=== PATIENT | male | born 1985 | race Caucasian/White ===

== ENCOUNTER 2019-04-04 21:45 | Emergency (ER) | payer BC, OTHER ==
[2019-04-04 22:10] LABS: Absolute Lymphocytes (CBC) 3.4 K/uL (0.7-4.9); MPV 9.1 fL (7.6-11.3); RBC Red Blood Cell Count 4.99 M/uL (4.33-5.43)
[2019-04-04] MEDS ORDERED: METOPROLOL TARTRATE 5 MG/5 ML INJ IV ONE (22:11)
--- NOTE | 2019-04-04 22:19 | RAD REPORT ---
EXAM DESCRIPTION: Shmuel Single View04/04/2019 10:11 pm CLINICAL HISTORY: Chest pain COMPARISON: none FINDINGS: The lungs appear clear of acute infiltrate. The heart is normal size IMPRESSION: No acute abnormalities displayed
[2019-04-04 22:20] LABS: Protime INR 0.96
[2019-04-04 22:37] LABS: ALT/SGPT 47 U/L (12-78); AST/SGOT 30 U/L (15-37); Albumin 3.8 g/dL (3.4-5.0); Alkaline Phosphatase 125 U/L (45-117); BUN Blood Urea Nitrogen 4 mg/dL (7-18); Bicarbonate 24 mmol/L (21-32); Bilirubin Direct < 0.1 mg/dL (0-0.2); Bilirubin Total 0.3 mg/dL (0.2-1.0); Glucose Level 115 mg/dL (74-106); Magnesium 2.2 mg/dL (1.8-2.4); NT PRO-BNP 8 pg/mL (<125); Potassium 4.1 mmol/L (3.5-5.1); Protein, Total 7.6 g/dL (6.4-8.2); Sodium Level 143 mmol/L (136-145); Troponin (Emerg Dept Use Only) < 0.02 ng/mL (0.0-0.045)
[2019-04-04 23:37] LABS: Barbiturates NEGATIVE (NEGATIVE); Benzodiazepines NEGATIVE (NEGATIVE); Cocaine NEGATIVE (NEGATIVE); METHAMPHETAM NEGATIVE (NEGATIVE); Methadone NEGATIVE (NEGATIVE); Opiates NEGATIVE (NEGATIVE); Phencyclidine NEGATIVE (NEGATIVE); THC Cannibis NEGATIVE (NEGATIVE)
--- NOTE | 2019-04-04 23:56 | ER ---
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 pt c/o ak1 nausea. pt stated he has a history of this and once he coughs, "it fixes it". Transition of care: patient was not received from another setting of care. Onset of symptoms is unknown. Risk Assessment: Do you want to hurt yourself or someone else? Patient reports no desire to harm self or others. Initial Sepsis Screen: Does the patient meet any 2 criteria? No. Patient's initial sepsis screen is negative. Does the patient have a suspected source of infection? No. Patient's initial sepsis screen is negative. Care prior to arrival: None. 21:56 Method Of Arrival: Wheelchair ak1 21:56 Acuity: EMELYN 2 ak1 Triage Assessment: 21:58 General: Appears in no apparent distress. uncomfortable, Behavior is calm, cooperative. ak1 Pain: Denies pain. Historical: - Allergies: 21:58 Cipro PO; ak1 - Home Meds: 21:58 omeprazole Oral [Active]; ak1 - PMHx: 21:58 heartburn; ak1 - PSHx: 21:58 Cholecystectomy; ak1 - Immunization history:: Adult Immunizations unknown. - Social history:: Smoking status: Patient uses tobacco products, smokes one pack cigarettes per day. - Ebola Screening: : No symptoms or risks identified at this time. Screenin:58 Abuse screen: Denies threats or abuse. Denies injuries from another. Nutritional ak1 screening: No deficits noted. Tuberculosis screening: No symptoms or risk factors identified. Fall Risk None identified. Assessment: 22:00 General: Appears uncomfortable, Behavior is appropriate for age. Pain: Complains of ea pain in chest Quality of pain is described as "feels like my heart is beating out of my chest". Neuro: Level of Consciousness is awake, alert, obeys commands, Oriented to person, place, time, situation. Cardiovascular: Patient's skin is warm and dry. Respiratory: Airway is patent Respiratory effort is even, unlabored, Respiratory pattern is regular, symmetrical. GI: Abdomen is non-distended. Derm: Skin is dry, Skin is flushed, Skin temperature is warm. Musculoskeletal: Circulation, motion, and sensation intact. 23:37 Reassessment: Patient appears in no apparent distress at this time. Patient and/or rv family updated on plan of care and expected duration. Pain level reassessed. Patient is alert, oriented x 3, equal unlabored respirations, skin warm/dry/pink. Patient denies pain at this time. Patient states feeling better. Patient states symptoms have improved. Vital Signs: 21:55 BP 175 / 85; Pulse 127; Resp 18; Temp 98.2; Pulse Ox 94% on R/A; Weight 90.72 kg (R); ak1 Height 5 ft. 11 in. (180.34 cm) (R); Pain 0/10; 22:30 BP 116 / 76; Pulse 93; Resp 18; Temp 98.7(O); Pulse Ox 97% on R/A; ea 23:00 BP 127 / 88; Pulse 94; Resp 16; Pulse Ox 97% on R/A; rv 23:30 BP 116 / 82; Pulse 91; Resp 15; Pulse Ox 96% on R/A; rv 21:55 Body Mass Index 27.89 (90.72 kg, 180.34 cm) ak1 ED Course: 21:46 Patient arrived in ED. es 21:47 Bran Cabrera DO is Private Physician. es 21:51 Uriah Inman PA is PHCP. jr8 21:51 Carlyle Ross MD is Attending Physician. jr8 21:54 Quan Wang RN is Primary Nurse. rv 21:55 Arm band placed on Patient placed in an exam room, on a stretcher, on equipment monitor phototypesetting, ak1 on pulse oximetry, Patient notified of wait time. 21:57 Triage completed. ak1 21:59 Patient has correct armband on for positive identification. Placed in gown. Bed in low ea position. Call light in reach. Side rails up X2. 21:59 EKG done, by ED staff. ea 22:04 Inserted saline lock: 20 gauge in right antecubital area, using aseptic technique. rv Blood collected. 22:11 XRAY Chest (1 view) In Process Unspecified. EDMS 23:55 Lang Miranda MD is Referral Physician. jr8 04/05 00:00 No provider procedures requiring assistance completed. IV discontinued, intact, rv bleeding controlled, No redness/swelling at site. Pressure dressing applied. Administered Medications: 04/04 22:15 Drug: Lopressor 5 mg Route: IVP; Site: right antecubital; rv 23:38 Follow up: Response: Cardiac rhythm changed rv 23:59 Drug: Metoprolol 25 mg Route: PO; rv 04/05 00:00 Follow up: Response: Medication administered at discharge. rv Outcome: 04/04 23:55 Discharge ordered by . jr8 04/05 00:00 Discharged to home ambulatory, with family. rv Condition: improved Discharge instructions given to patient, Instructed on discharge instructions, follow up and referral plans. medication usage, Demonstrated understanding of instructions, follow-up care, medications, Prescriptions given X 1. 00:09 Patient left the ED. rv Signatures: Dispatcher [employer] EDMS Columba Do Josh, PA PA jr8 Nell Duong RN RN ak1 Nai Clements, RN RN Quan Ceja RN RN rv
--- NOTE | 2019-04-04 23:57 | EDPHYS ---
Physician Documentation [facility] Name: Omar Carpenter Age: 33 yrs Sex: Male : 1985 Arrival Date: 04/04/2019 Time: 21:46 Bed 28 Private MD: Bran Cabrera H ED Physician Carlyle Ross HPI: 04/04 23:49 This 33 yrs old Male presents to ER via Wheelchair with complaints of jr8 Palpitations. 23:49 The patient presents with a history of heart racing, heart skipping beats. Context: The jr8 symptoms occur at rest. Onset: The symptoms/episode began/occurred gradually, 2 year(s) ago, and became worse today, and became persistent today. Duration: The patient or guardian reports a single episode, that is still ongoing. Modifying factors: The symptoms are aggravated by nothing. The symptoms are alleviated by nothing. Associated signs and symptoms: The patient has no apparent associated signs or symptoms. Severity of symptoms: At their worst the symptoms were moderate in the emergency department the symptoms are unchanged. The patient has experienced similar episodes in the past, several times. The patient has not recently seen a physician. Patient stated that he has had skipping and racing heart beat for the past 2 years. Came on randomly one day and has continued since then. Stated that normally will last for a day and he can sleep it off and by the next day be fine. This particular episode started 3 days ago and has continued through today. Historical: - Allergies: 21:58 Cipro PO; ak1 - Home Meds: 21:58 omeprazole Oral [Active]; ak1 - PMHx: 21:58 heartburn; ak1 - PSHx: 21:58 Cholecystectomy; ak1 - Immunization history:: Adult Immunizations unknown. - Social history:: Smoking status: Patient uses tobacco products, smokes one pack cigarettes per day. - Ebola Screening: : No symptoms or risks identified at this time. ROS: 23:49 Eyes: Negative for injury, pain, redness, and discharge, ENT: Negative for injury, jr8 pain, and discharge, Neck: Negative for injury, pain, and swelling, Respiratory: Negative for shortness of breath, cough, wheezing, and pleuritic chest pain, Abdomen/GI: Negative for abdominal pain, nausea, vomiting, diarrhea, and constipation, Back: Negative for injury and pain, MS/Extremity: Negative for injury and deformity, Skin: Negative for injury, rash, and discoloration, Neuro: Negative for headache, weakness, numbness, tingling, and seizure. 23:49 Cardiovascular: Positive for palpitations, Negative for chest pain, edema, orthopnea, paroxysmal nocturnal dyspnea. Exam: 23:49 Eyes: Pupils equal round and reactive to light, extra-ocular motions intact. Lids and jr8 lashes normal. Conjunctiva and sclera are non-icteric and not injected. Cornea within normal limits. Periorbital areas with no swelling, redness, or edema. ENT: Nares patent. No nasal discharge, no septal abnormalities noted. Tympanic membranes are normal and external auditory canals are clear. Oropharynx with no redness, swelling, or masses, exudates, or evidence of obstruction, uvula midline. Mucous membranes moist. Neck: Trachea midline, no thyromegaly or masses palpated, and no cervical lymphadenopathy. Supple, full range of motion without nuchal rigidity, or vertebral point tenderness. No Meningismus. Respiratory: Lungs have equal breath sounds bilaterally, clear to auscultation and percussion. No rales, rhonchi or wheezes noted. No increased work of breathing, no retractions or nasal flaring. Abdomen/GI: Soft, non-tender, with normal bowel sounds. No distension or tympany. No guarding or rebound. No evidence of tenderness throughout. Back: No spinal tenderness. No costovertebral tenderness. Full range of motion. Skin: Warm, dry with normal turgor. Normal color with no rashes, no lesions, and no evidence of cellulitis. MS/ Extremity: Pulses equal, no cyanosis. Neurovascular intact. Full, normal range of motion. Neuro: Awake and alert, GCS 15, oriented to person, place, time, and situation. Cranial nerves II-XII grossly intact. Motor strength 5/5 in all extremities. Sensory grossly intact. Cerebellar exam normal. Normal gait. 23:49 Cardiovascular: Rate: tachycardic, Rhythm: regular, Pulses: Pulses are 2+ in right radial artery and left radial artery. Heart sounds: normal, normal S1and S2, no S3 or S4, no murmur, no rub, no gallop, Edema: is not appreciated, JVD: is not appreciated. Vital Signs: 21:55 BP 175 / 85; Pulse 127; Resp 18; Temp 98.2; Pulse Ox 94% on R/A; Weight 90.72 kg (R); ak1 Height 5 ft. 11 in. (180.34 cm) (R); Pain 0/10; 22:30 BP 116 / 76; Pulse 93; Resp 18; Temp 98.7(O); Pulse Ox 97% on R/A; ea 23:00 BP 127 / 88; Pulse 94; Resp 16; Pulse Ox 97% on R/A; rv 23:30 BP 116 / 82; Pulse 91; Resp 15; Pulse Ox 96% on R/A; rv 21:55 Body Mass Index 27.89 (90.72 kg, 180.34 cm) ak1 MDM: 21:51 Patient medically screened. jr8 23:49 Differential diagnosis: arrythmia, dehydration, stress disorder, Drug abuse, jr8 Electrolyte abnormality, thyroid dysfunction, adrenal insufficiency, alcohol abuse. Data reviewed: vital signs, nurses notes, lab test result(s), EKG, radiologic studies, plain films. Data interpreted: Pulse oximetry: on room air is 96 %. Interpretation: normal. 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 Response to treatment: the patient's symptoms have markedly improved after treatment. ED course: Patients HR well controlled after being medicated. Feeling better. No acute abnormalities on CXR, labs, or ECG. Recommended f/u with cardiology soon. Will start on PO medication at home since he continues to have symptomatic tachycardia with frequent PVC's . 04/04 21:51 Order name: Basic Metabolic Panel 04/04 21:51 Order name: CBC with Diff 04/04 21:51 Order name: LFT's; Complete Time: 22:43 04/04 21:51 Order name: Magnesium; Complete Time: 22:43 04/04 21:51 Order name: NT PRO-BNP; Complete Time: 22:43 04/04 21:51 Order name: PT-INR; Complete Time: 22:43 [facility] 04/04 21:51 Order name: Troponin (emerg Dept Use Only); Complete Time: 22:43 8 04/04 21:53 Order name: Basic Metabolic Panel; Complete Time: 22:43 [facility] 04/04 21:53 Order name: CBC with Automated Diff; Complete Time: 22:43 [facility] 04/04 22:09 Order name: UDS; Complete Time: 23:49 8 04/04 22:17 Order name: T4 Free; Complete Time: 22:43 [facility] 04/04 22:17 Order name: Thyroid Stimulating Hormone; Complete Time: 22:43 [facility] 04/04 21:51 Order name: XRAY Chest (1 view); Complete Time: 22:43 [facility] 04/04 21:51 Order name: EKG; Complete Time: 21:53 [facility] 04/04 21:51 Order name: Cardiac monitoring; Complete Time: 22:00 [facility] 04/04 21:51 Order name: EKG - Nurse/Tech; Complete Time: 22:00 [facility] 04/04 21:51 Order name: IV Saline Lock; Complete Time: 22:04 [facility] 04/04 21:51 Order name: Labs collected and sent; Complete Time: 22:04 [facility] 04/04 21:51 Order name: O2 Per Protocol; Complete Time: 22:00 [facility] 04/04 21:51 Order name: O2 Sat Monitoring; Complete Time: 22:00 Administered Medications: 22:15 Drug: Lopressor 5 mg Route: IVP; Site: right antecubital; rv 23:38 Follow up: Response: Cardiac rhythm changed rv 23:59 Drug: Metoprolol 25 mg Route: PO; rv 04/05 00:00 Follow up: Response: Medication administered at discharge. rv Disposition: 06:00 Co-signature as Attending Physician, Carlyle Ross MD I agree with the assessment and 4 plan of care. Disposition: 04/04/19 23:55 Discharged to Home. Impression: Tachycardia, unspecified, Ventricular premature depolarization. - Condition is Stable. - Discharge Instructions: Premature Ventricular Contraction, Sinus Tachycardia. - Prescriptions for Metoprolol Tartrate 25 mg Oral Tablet - take 1 tablet by ORAL route 2 times per day with a meal; 60 tablet. - Medication Reconciliation Form, Thank You Letter, Antibiotic Education, Prescription Opioid Use form. - Follow up: Lang Miranda MD; When: 2 - 3 days; Reason: Recheck today's complaints, Continuance of care, Re-evaluation by your physician. - Problem is new. - Symptoms have improved. Signatures: Dispatcher [employer] [facility] Uriah Inman PA PA jr8 Nell Duong, RN RN ak1 Carlyle Ross MD MD tw4 Quan Wang RN RN rv Corrections: (The following items were deleted from the chart) 04/04 22: 22:10 THYROID STIMULAT HORMONE+C.LAB.BRZ ordered. [facility] EDTN : 22:10 T4 FREE+C.LAB.BRZ ordered. [facility] 04/05 00:09 04/04 23:55 04/04/2019 23:55 Discharged to Home. Impression: Tachycardia, unspecified; rv Ventricular premature depolarization. Condition is Stable. Forms are Medication Reconciliation Form, Thank You Letter, Antibiotic Education, Prescription Opioid Use. Follow up: Lang Miranda; When: 2 - 3 days; Reason: Recheck today's complaints, Continuance of care, Re-evaluation by your physician. Problem is new. Symptoms have improved. jr8
[2019-04-04] MEDS ORDERED: METOPROLOL TAR 25 MG TAB ONE (23:59)
--- NOTE | 2019-04-05 16:57 | EKG ---
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
== END 2019-04-05 00:09 | disposition home or self-care (01) ==
LOC: ER 21:45
DX: I49.3 Ventricular premature depolarization (principal); R00.0 Tachycardia, unspecified; F17.210 Nicotine dependence, cigarettes, uncomplicated
CPT/HCPCS: 36415; 71045; 80048; 80076; 80307; 83735; 83880; 84439; 84443; 84484; 85025; 85610; 93005; 96374; 99284